=== PATIENT | male | born 1995 | race Caucasian/White ===

== ENCOUNTER 2025-04-29 08:02 | Emergency (ER) | payer OTHER, SELFPAY ==
--- OUTSIDE RECORDS SUMMARY | 2010-01-06 09:30 | XMS_ITS | Continuity of Care Document ---
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, [address], [place], [place], [id number], [place] tel:[phone] [facility] No Information [phone] Alfonso OD Kobe. [address] , [address], [place], [address], [place]. tel:[phone] Family History Family Member Type Diagnosis Age At Onset No Information Payers Payer name Insurance type Covered democrat ID Authoriza tion(s) P [id number] Social History Type Description Quantity Date Captured Comments Sex Male Smoking Status No Information Chief Complaint And Reason For Visit No Information Reason For Referral Reason For Referral No Information History Of Present Illness Encounter Date Complaint History Of Prese nt Illness No Information Functional Status Date Functional Assessmen t No Information Instructions Date Instruction Additional Infor mation No Information Assessments Type Assessment Date No Information Patient Care Teams Name Effective Dates (start - stop) Status Members No Information
--- OUTSIDE RECORDS SUMMARY | 2010-01-06 09:30 | XMS_ITS | Continuity of Care Document ---
Author Organization [facility] Address [address] [place] [address] Phone Care Team Providers Care Credit Assistant Name Role Phone Alfonso OD, Kobe Unavailable Unavailable Procedures Procedure Date Eye Exam, New Patient Refraction Advance Directives Directive Yes / No Effective Date File Name No Information Encounters Encounter Description Practice Location Reason(s) For Visit Diagnoses Date Provider Providers Copied on Encounter [facility], [address], [place], [place], [id number], [place] tel:[phone] [facility] No Information [phone] Alfonso OD Kobe. [address] , [address], [place], [address], [place]. tel:[phone] Family History Family Member Type Diagnosis Age At Onset No Information Payers Payer name Insurance type Covered democrat ID Authoriza tion(s) [id number] Social History Type Description Quantity Date Captured [...]
--- OUTSIDE RECORDS SUMMARY | 2025-04-29 08:07 | XMS_ITS | Clinical Summary ---
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 Gender Identity Not on file Sexual Orientation Not on file Plan of Treatment Health Maintenance Due Date Last Done Comments Annual Physical 12/01/1998 Hepatitis C 12/01/2013 DTaP, Tdap and Td Vaccines ( 1 - Tdap) 12/01/2014 Hepatitis B Vaccines (1 of 3 - 19+ 3-dose series) 12/01/2014 HPV Vaccines (1 - 3-dose SCD M series) 12/01/2022 COVID-19 Vaccine (2023-2 5 season) 2025 Influenza Adult (#1) 2025 Hepatitis A Vaccines Aged Out No long er eligible based on patient's age to complete this topic Meningococcal B Vaccine Aged Out No l onger eligible based on patient's age to complete this topic Meningococcal Vaccine Aged Out No cielo jefferson eligible based on patient's age to complete this topic Pneumococcal Vaccine: Pediat rics (0 to 5 Years) and At-Risk Patients (6 to 49 Years) Aged Out No longer eligible b ased on patient's age to complete this topic RSV Immunizations Under 20 Months Aged Out No longer eligible based on patient's age to complete this topic Insurance [facility] Care Teams 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
[2025-04-29 08:09] VITALS: BP 154/60; PULSE 68; RESP 16; TEMP 36.4; O2SAT 98
--- NOTE | 2025-04-29 08:09 | ED_ITS ---
HPI - Extremity Injury (Lower) General Chief Complaint: Extremity Injury, Lower Stated Complaint: L Knee Time Seen by Provider: 04/29/25 08:09 Source: patient Mode of arrival: ambulatory Limitations: no limitations History of Present Illness HPI Narrative: 29-year-old male presents with complaint of abrasion to right knee. Patient fell on concrete 5 days ago. Has been applying Neosporin and a and D ointment. Patient concern for infection. Ambulatory with steady gait. All systems reviewed and negative except as noted above. Related Data Allergies Allergy/AdvReac Type Severity Reaction Status Date / Time Sulfa (Sulfonamide Allergy Severe Rash Verified 04/29/25 08:12 Antibiotics) [facility] Past Medical History Medical History (Updated 04/29/25 @ 08:21 by Amy Alexis NP) Other specified cardiac dysrhythmias Genital herpes Family History Family History (Updated 05/30/22 @ 16:12 by Zeinab Jack MA) Mother Breast cancer Social History Social History (Updated 03/09/25 @ 08:23 by Kwame Sutherland) Social History: 03/09/25 Patient declined SDOH Smoking status: Light tobacco smoker (uses tobacco atleast once or twice a month - social ) Alcohol intake: current Alcohol use details: social Substance use: never Living arrangements: with family Occupation/Education: occupation Gender identity (if verbalized by the patient): Male Comments At time of signature, agree with nursing past medical, surgical, social and family history. There is no relevant family history pertinent to the presenting complaint. Exam Narrative: GENERAL: This is a well-nourished, well-developed patient, in no apparent distress. HEAD: normocephalic, atraumatic. EYES: PERRL. Sclera clear/white. Vision is grossly intact. EARS: External ears normal NOSE: External nose normal NECK: Neck supple, non-tender without lymphadenopathy, masses or thyromegaly. CARDIOVASCULAR: Regular rate and rhythm without murmurs, gallops, or rubs. RESPIRATORY: Clear to auscultation. Breath sounds equal bilaterally. No wheezes, rales, or rhonchi. SKIN: warm, Dry, intact with no suspicious lesions or rash, good texture and turgor. Abrasion to right knee 3 x 5 cm. Mild erythema to wound edges, no warmth or drainage. No fluctuance concerning for abscess. NEURO: awake, alert, and oriented to person, place and time. There were no obvious focal neurologic abnormalities. EXTREMITIES: No joint tenderness, effusion, or edema noted. Course Course Level of Care: Express Care Visit Vital Signs Vital signs: Vital Signs Temperature 36.4 C L 04/29/25 08:09 Pulse Rate 68 04/29/25 08:09 Respiratory Rate 16 04/29/25 08:09 Blood Pressure 154/60 H 04/29/25 08:09 Pulse Oximetry 98 04/29/25 08:09 Oxygen Delivery Room Air 04/29/25 08:09 Temperature 36.4 C L 04/29/25 08:09 Pulse Rate 68 04/29/25 08:09 Respiratory Rate 16 04/29/25 08:09 Blood Pressure 154/60 H 04/29/25 08:09 Pulse Oximetry 98 04/29/25 08:09 Oxygen Delivery Room Air 04/29/25 08:09 Reviewed MDM - Extremity Injury (Lower) MDM Narrative Medical decision making narrative: will give patient mupirocin ointment for wound infection prevention. Patient a ramez with plan of care. Discharge Plan Discharge Clinical Impression: Abrasion of knee, left Qualifiers: Encounter type: initial encounter Qualified Code(s): S80.212A - Abrasion, left knee, initial encounter Patient Disposition: Home Condition: Stable Instructions: Antibiotic Form, Abrasion (ED) Additional Instructions: apply antibiotic ointment as prescribed. Keep wound clean and dry. Follow-up with your doctor as needed. Patient Language: Albanian Prescriptions: New mupirocin [Centany] 2 % ointment 1 applic topical BID 7 Days Qty: 15 0RF No Action valacyclovir [Valtrex] 500 mg tablet 500 mg PO DAILY Qty: 90 3RF Follow-up/Referrals: Chante Andrews PA-C [Primary Care Provider, [facility]] Time of Disposition: 08:22
== END 2025-04-29 08:24 | disposition home or self-care (01) ==
PROVIDERS: Emergency Provider Nurse Practitioner Family; PCP Physician Assistant Medical
DX: S80.212A Abrasion, left knee, initial encounter (principal); F17.210 Nicotine dependence, cigarettes, uncomplicated; W18.30XA Fall on same level, unspecified, initial encounter
CPT/HCPCS: 99213; G0463